=== PATIENT | female | born 1950 | race Caucasian/White ===

== ENCOUNTER 2017-11-06 08:35 | Emergency (ER) | payer MEDICARE, OTHER ==
[2017-11-06] MEDS ORDERED: Sodium Chloride 0.9% 10 ML Syringe FLUSH PRN (08:57)
[2017-11-06] MEDS ORDERED: Sodium Chloride 0.9% 1,000 ML IV ONE (08:57)
[2017-11-06] MEDS ORDERED: Sodium Chloride 0.9% 2.5 ML Syringe FLUSH PRN (08:57)
--- NOTE | 2017-11-06 08:59 | EDM.PDOC ---
ED HPI GENERAL MEDICAL PROBLEM - General Chief Complaint: Gastrointestinal Problem Stated Complaint: RECTAL BLEEDING Time Seen by Provider: 11/06/17 08:55 Source of Information: Reports: Patient History Limitations: Reports: No Limitations - History of Present Illness INITIAL COMMENTS - FREE TEXT/NARRATIVE: History of present illness: []Patient has been having bright red rectal bleeding all night. She denies any rectal pain but feels generalized abdominal pressure. She has not had any nausea , vomiting, fevers or chills. Patient denies having history of hemorrhoids, diverticulosis or diverticulitis. Review of systems: As per history of present illness and below otherwise all systems reviewed and negative. Past medical history: As per history of present illness and as reviewed below otherwise noncontributory. Surgical history: As per history of present illness and as reviewed below otherwise noncontributory. Social history: No reported history of drug or alcohol abuse. Family history: As per history of present illness and as reviewed below otherwise noncontributory. Physical exam: General: Well developed, well nourished in NAD HEENT: Atraumatic, normocephalic, pupils reactive, negative for conjunctival pallor or scleral icterus, mucous membranes moist, throat clear, neck supple, nontender, trachea midline. Lungs: Clear to auscultation, breath sounds equal bilaterally, chest nontender. Heart: S1S2, regular, negative for clicks, rubs, or JVD. Abdomen: Soft, nondistended, nontender no rebound or guarding. Negative for masses or hepatosplenomegaly. Negative for costovertebral tenderness. Pelvis: Stable nontender. Genitourinary: Deferred. Rectal: Guaiac positive no active bleeding Extremities: Atraumatic, negative for cords or calf pain. Neurovascular unremarkable. Neuro: Awake, alert, oriented. Cranial nerves II through XII unremarkable. Cerebellum unremarkable. Motor and sensory unremarkable throughout. Exam nonfocal. Diagnostics: []CBC is elevated H&H 16/47 and platelets 430, chemistries are normal lactate is negative, CT of the abdomen shows 1. Findings representing ischemia in the distribution of the inferior mesenteric artery. 2. No pneumoperitoneum. 3. No evidence of pneumatosis. 4. 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 5. Multiple small benign cysts in the liver. 6. Multiple hemangiomas in the liver. 7. Prominent adrenal glands bilateral; followup is needed. 8. Status post hysterectomy. 9. Diverticulosis sigmoid colon without any CT evidence of diverticulitis or abscess. 10. Grade 1 spondylolisthesis of L4 with bilateral spondylolysis. Therapeutics: []IV fluids given Impression: []Ischemic bowel Plan: []Dr. Maldonado, on-call for general surgery was consulted evaluating the patient and is arranging transfer. Be transferred to [facility] Definitive disposition and diagnosis as appropriate pending reevaluation and review of above. Abdominal Pain Score (Numeric/FACES): 4 - Related Data Allergies Allergy/AdvReac Type Severity Reaction Status Date / Time cephalexin monohydrate Allergy Other Verified 11/06/17 08:45 [From Keflex] Home Meds: Home Meds . [No Known Home Meds] 11/06/17 [History] Past Medical History Respiratory History: Reports: COPD Social & Family History - Tobacco Use Smoking Status *Q: Current Every Day Smoker Years of Tobacco use: 40 Packs/Tins Daily: 0.2 - Caffeine Use Caffeine Use: Reports: Coffee - Recreational Drug Use Recreational Drug Use: No ED ROS GENERAL - Review of Systems Review Of Systems: See Below (See history of present illness) ED EXAM, GI/ABD - Physical Exam Exam: See Below (See history of present illness) Course - Vital Signs Last Recorded V/S: Last Vital Signs Temp 99.2 F 11/06/17 08:51 Pulse 100 11/06/17 13:40 Resp 18 11/06/17 13:40 BP 144/103 H 11/06/17 13:40 Pulse Ox 95 11/06/17 13:40 - Orders/Labs/Meds Orders: Active Orders 24 hr Category Date Time Status EKG Documentation Completion [RC] STAT Care 11/06/17 08:56 Active Abdomen Pelvis w Cont [CT] Stat Exams 11/06/17 10:17 Taken Sodium Chloride 0.9% [Saline Flush] Med 11/06/17 08:57 Active 10 ml FLUSH ASDIRECTED PRN Sodium Chloride 0.9% [Saline Flush] Med 11/06/17 08:57 Active 2.5 ml FLUSH ASDIRECTED PRN Saline Lock Insert [OM.PC] Stat Oth 11/06/17 08:56 Ordered Medication Orders Sodium Chloride (Saline Flush) 10 ml FLUSH ASDIRECTED PRN PRN Reason: Keep Vein Open Sodium Chloride (Saline Flush) 2.5 ml FLUSH ASDIRECTED PRN PRN Reason: Keep Vein Open Labs: Laboratory Tests 11/06/17 11/06/17 11/06/17 Range/Units 09:01 09:01 09:01 WBC 15.07 H (4.0-11.0) K/uL RBC 5.34 (4.30-5.90) M/uL Hgb 16.1 H (12.0-16.0) g/dL Hct 47.4 H (36.0-46.0) % MCV 88.8 (80.0-98.0) fL MCH 30.1 (27.0-32.0) pg MCHC 34.0 (31.0-37.0) g/dL RDW Std Deviation 47.0 (28.0-62.0) fl RDW Coeff of Del 15 (11.0-15.0) % Plt Count 430 H (150-400) K/uL MPV 9.90 (7.40-12.00) fL Neut % (Auto) 79.9 (48.0-80.0) % Lymph % (Auto) 10.7 L (16.0-40.0) % [place] % (Auto) 8.4 (0.0-15.0) % Eos % (Auto) 0.7 (0.0-7.0) % Baso % (Auto) 0.3 (0.0-1.5) % Neut # (Auto) 12.0 H (1.4-5.7) K/uL Lymph # (Auto) 1.6 (0.6-2.4) K/uL [place] # (Auto) 1.3 H (0.0-0.8) K/uL Eos # (Auto) 0.1 (0.0-0.7) K/uL Baso # (Auto) 0.0 (0.0-0.1) K/uL Nucleated RBC % 0.0 /100WBC Nucleated RBCs # 0 K/uL INR 1.12 APTT 27.6 (18.6-31.3) SEC Lactate (0.20-2.00) mmol/L Sodium 140 (136-145) mmol/L Potassium 3.9 (3.5-5.1) mmol/L Chloride 104 (98-107) mmol/L Carbon Dioxide 27.3 (21.0-32.0) mmol/L BUN 20 H (7.0-18.0) mg/dL Creatinine 1.0 (0.6-1.0) mg/dL Est Cr Clr Drug Dosing 51.10 mL/min Estimated GFR (MDRD) 55.3 ml/min Glucose 103 (74-106) mg/dL Calcium 9.1 (8.5-10.1) mg/dL Total Bilirubin 0.9 (0.2-1.0) mg/dL AST 19 (15-37) IU/L ALT 40 (14-63) IU/L Alkaline Phosphatase 92 (46-116) U/L Total Protein 7.2 (6.4-8.2) g/dL Albumin 3.6 (3.4-5.0) g/dL Globulin 3.6 H (2.0-3.5) g/dL Albumin/Globulin Ratio 1.0 L (1.3-2.8) Blood Type Antibody Screen 11/06/17 11/06/17 Range/Units 09:15 09:15 WBC (4.0-11.0) K/uL RBC (4.30-5.90) M/uL Hgb (12.0-16.0) g/dL Hct (36.0-46.0) % MCV (80.0-98.0) fL MCH (27.0-32.0) pg MCHC (31.0-37.0) g/dL RDW Std Deviation (28.0-62.0) fl RDW Coeff of Del (11.0-15.0) % Plt Count (150-400) K/uL MPV (7.40-12.00) fL Neut % (Auto) (48.0-80.0) % Lymph % (Auto) (16.0-40.0) % [place] % (Auto) (0.0-15.0) % Eos % (Auto) (0.0-7.0) % Baso % (Auto) (0.0-1.5) % Neut # (Auto) (1.4-5.7) K/uL Lymph # (Auto) (0.6-2.4) K/uL [place] # (Auto) (0.0-0.8) K/uL Eos # (Auto) (0.0-0.7) K/uL Baso # (Auto) (0.0-0.1) K/uL Nucleated RBC % /100WBC Nucleated RBCs # K/uL INR APTT (18.6-31.3) SEC Lactate 0.9 (0.20-2.00) mmol/L Sodium (136-145) mmol/L Potassium (3.5-5.1) mmol/L Chloride (98-107) mmol/L Carbon Dioxide (21.0-32.0) mmol/L BUN (7.0-18.0) mg/dL Creatinine (0.6-1.0) mg/dL Est Cr Clr Drug Dosing mL/min Estimated GFR (MDRD) ml/min Glucose (74-106) mg/dL Calcium (8.5-10.1) mg/dL Total Bilirubin (0.2-1.0) mg/dL AST (15-37) IU/L ALT (14-63) IU/L Alkaline Phosphatase (46-116) U/L Total Protein (6.4-8.2) g/dL Albumin (3.4-5.0) g/dL Globulin (2.0-3.5) g/dL Albumin/Globulin Ratio (1.3-2.8) Blood Type A POSITIVE Antibody Screen NEGATIVE Meds: Medications Generic Name Dose Route Start Last Admin Trade Name Freq PRN Reason Stop Dose Admin Sodium Chloride 10 ml 11/06/17 08:57 Saline Flush FLUSH ASDIRECTED PRN Keep Vein Open Sodium Chloride 2.5 ml 11/06/17 08:57 Saline Flush FLUSH ASDIRECTED PRN Keep Vein Open Discontinued Medications Generic Name Dose Route Start Last Admin Trade Name Freq PRN Reason Stop Dose Admin Sodium Chloride 1,000 mls @ 999 mls/hr 11/06/17 08:57 11/06/17 09:07 Normal Saline IV 11/06/17 09:57 999 mls/hr .Bolus ONE Administration Lactated Ringer's 1,000 mls @ 999 mls/hr 11/06/17 11:26 11/06/17 11:28 Ringers, Lactated IV 11/06/17 12:26 999 mls/hr .BOLUS ONE Administration Iopamidol 75 ml 11/06/17 10:18 11/06/17 10:23 Isovue Multipack-370 (76%) IVPUSH 11/06/17 10:19 75 ml ONETIME STA Administration Departure - Departure Time of Disposition: 13:55 Disposition: DC/Tfer to Acute Hospital 02 Condition: Good Clinical Impression: Acute intestinal ischemic syndrome - Discharge Information Referrals: Kiran Teran MD [Primary Care Provider] - Forms: ED Department Discharge - My Orders Last 24 Hours: My Active Orders 11/06/17 08:56 EKG Documentation Completion [RC] STAT Saline Lock Insert [OM.PC] Stat 11/06/17 08:57 Sodium Chloride 0.9% [Saline Flush] 10 ml FLUSH ASDIRECTED PRN Sodium Chloride 0.9% [Saline Flush] 2.5 ml FLUSH ASDIRECTED PRN 11/06/17 10:17 Abdomen Pelvis w Cont [CT] Stat - Assessment/Plan Last 24 Hours: My Active Orders 11/06/17 08:56 EKG Documentation Completion [RC] STAT Saline Lock Insert [OM.PC] Stat 11/06/17 08:57 Sodium Chloride 0.9% [Saline Flush] 10 ml FLUSH ASDIRECTED PRN Sodium Chloride 0.9% [Saline Flush] 2.5 ml FLUSH ASDIRECTED PRN 11/06/17 10:17 Abdomen Pelvis w Cont [CT] Stat
[2017-11-06] MEDS ORDERED: Iopamidol 755 MG/ML 200 ML Multipack Bottle IVPUSH STA (10:18)
[2017-11-06] MEDS ORDERED: Lactated Ringers 1,000 ML IV ONE (11:26)
--- NOTE | 2017-11-06 13:43 | PCM.CONS ---
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 [No Known Home Meds] 11/06/17 [History] Past Medical History - Past Health History Medical/Surgical History: Denies Medical/Surgical History (denied DM/DE/CVA, pt has HTN) Respiratory History: Reports: COPD - History Comment History Comment: PSH: appendectomy, ИВАН Social & Family History - Tobacco Use Smoking Status *Q: Current Every Day Smoker Years of Tobacco use: 40 Packs/Tins Daily: 0.2 - Caffeine Use Caffeine Use: Reports: Coffee - Recreational Drug Use Recreational Drug Use: No H&P Review of Systems - Review of Systems: Review Of Systems: See Below Free Text/Narrative: same as HPI General: Reports: No Symptoms Exam - Exam Exam: See Below - Vital Signs Vital Signs: Last Vital Signs Temp 99.2 F 11/06/17 08:51 Pulse 70 11/06/17 12:13 Resp 18 11/06/17 12:13 BP 123/93 H 11/06/17 12:13 Pulse Ox 94 L 11/06/17 12:13 Weight: 200 lb - Exam General: Alert, Oriented Neck: Supple Cardiovascular: Regular Rate, Regular Rhythm GI/Abdominal Exam: Soft, No Distention - Patient Data Lab Results Last 24 hrs: Laboratory Results - last 24 hr 04/01/18 04/01/18 04/01/18 Range/Units 09:01 09:01 09:01 WBC 15.07 H (4.0-11.0) K/uL RBC 5.34 (4.30-5.90) M/uL Hgb 16.1 H (12.0-16.0) g/dL Hct 47.4 H (36.0-46.0) % MCV 88.8 (80.0-98.0) fL MCH 30.1 (27.0-32.0) pg MCHC 34.0 (31.0-37.0) g/dL RDW Std Deviation 47.0 (28.0-62.0) fl RDW Coeff of Del 15 (11.0-15.0) % Plt Count 430 H (150-400) K/uL MPV 9.90 (7.40-12.00) fL Neut % (Auto) 79.9 (48.0-80.0) % Lymph % (Auto) 10.7 L (16.0-40.0) % [place] % (Auto) 8.4 (0.0-15.0) % Eos % (Auto) 0.7 (0.0-7.0) % Baso % (Auto) 0.3 (0.0-1.5) % Neut # (Auto) 12.0 H (1.4-5.7) K/uL Lymph # (Auto) 1.6 (0.6-2.4) K/uL [place] # (Auto) 1.3 H (0.0-0.8) K/uL Eos # (Auto) 0.1 (0.0-0.7) K/uL Baso # (Auto) 0.0 (0.0-0.1) K/uL Nucleated RBC % 0.0 /100WBC Nucleated RBCs # 0 K/uL INR 1.12 APTT 27.6 (18.6-31.3) SEC Lactate (0.20-2.00) mmol/L Sodium 140 (136-145) mmol/L Potassium 3.9 (3.5-5.1) mmol/L Chloride 104 (98-107) mmol/L Carbon Dioxide 27.3 (21.0-32.0) mmol/L BUN 20 H (7.0-18.0) mg/dL Creatinine 1.0 (0.6-1.0) mg/dL Est Cr Clr Drug Dosing 51.10 mL/min Estimated GFR (MDRD) 55.3 ml/min Glucose 103 (74-106) mg/dL Calcium 9.1 (8.5-10.1) mg/dL Total Bilirubin 0.9 (0.2-1.0) mg/dL AST 19 (15-37) IU/L ALT 40 (14-63) IU/L Alkaline Phosphatase 92 (46-116) U/L Total Protein 7.2 (6.4-8.2) g/dL Albumin 3.6 (3.4-5.0) g/dL Globulin 3.6 H (2.0-3.5) g/dL Albumin/Globulin Ratio 1.0 L (1.3-2.8) Blood Type Antibody Screen 11/06/17 11/06/17 Range/Units 09:15 09:15 WBC (4.0-11.0) K/uL RBC (4.30-5.90) M/uL Hgb (12.0-16.0) g/dL Hct (36.0-46.0) % MCV (80.0-98.0) fL MCH (27.0-32.0) pg MCHC (31.0-37.0) g/dL RDW Std Deviation (28.0-62.0) fl RDW Coeff of Del (11.0-15.0) % Plt Count (150-400) K/uL MPV (7.40-12.00) fL Neut % (Auto) (48.0-80.0) % Lymph % (Auto) (16.0-40.0) % [place] % (Auto) (0.0-15.0) % Eos % (Auto) (0.0-7.0) % Baso % (Auto) (0.0-1.5) % Neut # (Auto) (1.4-5.7) K/uL Lymph # (Auto) (0.6-2.4) K/uL [place] # (Auto) (0.0-0.8) K/uL Eos # (Auto) (0.0-0.7) K/uL Baso # (Auto) (0.0-0.1) K/uL Nucleated RBC % /100WBC Nucleated RBCs # K/uL INR APTT (18.6-31.3) SEC Lactate 0.9 (0.20-2.00) mmol/L Sodium (136-145) mmol/L Potassium (3.5-5.1) mmol/L Chloride (98-107) mmol/L Carbon Dioxide (21.0-32.0) mmol/L BUN (7.0-18.0) mg/dL Creatinine (0.6-1.0) mg/dL Est Cr Clr Drug Dosing mL/min Estimated GFR (MDRD) ml/min Glucose (74-106) mg/dL Calcium (8.5-10.1) mg/dL Total Bilirubin (0.2-1.0) mg/dL AST (15-37) IU/L ALT (14-63) IU/L Alkaline Phosphatase (46-116) U/L Total Protein (6.4-8.2) g/dL Albumin (3.4-5.0) g/dL Globulin (2.0-3.5) g/dL Albumin/Globulin Ratio (1.3-2.8) Blood Type A POSITIVE Antibody Screen NEGATIVE Result Diagrams: 11/06/17 09:01 11/06/17 09:01 Consult PN Assessment/Plan Procedures: Procedures ASSAY OF SERUM POTASSIUM (01/10/15) ASSAY THYROID STIM HORMONE (03/24/17) CHEST X-RAY 2VW FRONTAL&LATL (10/17/15) COMP SCREEN MAMMOGRAM ADD-ON (02/17/16) COMPLETE CBC W/AUTO DIFF WBC (10/17/15) DXA BONE DENSITY AXIAL (12/31/14) METABOLIC PANEL TOTAL CA (03/24/17) OFFICE/OUTPATIENT VISIT EST (02/10/16) ROUTINE VENIPUNCTURE (03/24/17) X-RAY EXAM OF WRIST (11/18/14) Problem List Initiated/Reviewed/Updated: Yes Plan: A&P: 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 Goff; life flight; no anticoagulation at the present stage
--- NOTE | 2017-11-07 13:24 | CT ---
EXAM DATE: 11/06/17 PATIENT'S AGE: 67 Patient: JAYSON NOGUERA Facility: [place], [place] Site . Site : 1950 Study: CT Abdomen/Pelvis [id number]/1/2018 10:54:54 AM Ordering Physician: Akash Webb Final Report: INDICATION: Rectal bleeding for the last 1 day; abdominal pressure; diarrhea. COMPARISON: None. TECHNIQUE: CT abdomen and pelvis with intravenous contrast; no oral contrast; coronal and sagittal reformats. FINDINGS: No abnormal intra pulmonary nodular densities through the lung bases. No evidence of pleural effusion. Normal size cardiac silhouette without any evidence of pericardial effusion. Several tiny cysts identified in the liver. No focal hepatic or splenic pathology. No pancreatic pathology. Gallbladder is unremarkable. Several cavernous hemangiomas identified in the liver. Prominent adrenal glands bilateral; followup is needed. Symmetric perfusion of both the kidneys without any obstructive uropathy or perinephric pathology. Tiny cyst lower pole left kidney. No kidneys stones. No retroperitoneal lymphadenopathy. No evidence of abdominal or pelvic ascites. Status post hysterectomy. Diverticulosis sigmoid colon without any CT evidence of diverticulitis or abscess. The appendix is not clearly visualized; no inflammatory changes in the right lower quadrant of the abdomen. Thickening of the wall of the entire descending colon with pericolonic inflammatory changes indicating ischemia in the distribution of the inferior mesenteric artery until proven otherwise. No evidence of pneumatosis. Splenic vein, superior mesenteric vein and the portal vein are unremarkable. Dilatation of the celiac axis artery beyond its origin measuring 13.3 mm in diameter with a thin radiolucent septum identified in it; rule out old healed dissection; followup is needed. Superior mesenteric artery is unremarkable. Inferior mesenteric artery is unremarkable. Grade 1 spondylolisthesis of L4 with bilateral spondylolysis IMPRESSION: 1. Findings representing ischemia in the distribution of the inferior mesenteric artery. 2. No pneumoperitoneum. 3. No evidence of pneumatosis. 4. 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 5. Multiple small benign cysts in the liver. 6. Multiple hemangiomas in the liver. 7. Prominent adrenal glands bilateral; followup is needed. 8. Status post hysterectomy. 9. Diverticulosis sigmoid colon without any CT evidence of diverticulitis or abscess. 10. Grade 1 spondylolisthesis of L4 with bilateral spondylolysis. Please note that all CT scans at this facility use dose modulation, iterative reconstruction, and/or weight-based dosing when appropriate to reduce radiation dose to as low as reasonably achievable. Dictated by Inocencio Bob MD @ Nov 06 2017 11:00AM (Electronic Signature) Report Signed by Proxy. MTDD
== END 2017-11-06 14:00 ==
LOC: MW.ED 08:35
DX: K55.9 Vascular disorder of intestine, unspecified (principal); F17.210 Nicotine dependence, cigarettes, uncomplicated; Z88.1 Allergy status to other antibiotic agents; R00.0 Tachycardia, unspecified
CPT/HCPCS: 36415; 74177; 80053; 83605; 85025; 85610; 85730; 86850; 86900; 86901; 93005; 96360; 96361; 99285; J7040; J7120; Q9967; 99283